=== PATIENT | female | born 1930 | race Caucasian/White ===

== ENCOUNTER → 2016-12-16 | Outpatient (CLI) | payer MEDICARE | END | disposition home or self-care (01) | LOC: PCVCCLINIC 10:36 | PROVIDERS: ATTEND Internal Medicine Cardiovascular Disease | DX: I48.91 Unspecified atrial fibrillation (principal); I10 Essential (primary) hypertension; I25.10 Atherosclerotic heart disease of native coronary artery without angina pectoris; I34.0 Nonrheumatic mitral (valve) insufficiency; I07.1 Rheumatic tricuspid insufficiency; I87.2 Venous insufficiency (chronic) (peripheral); E78.5 Hyperlipidemia, unspecified; R01.1 Cardiac murmur, unspecified | CPT/HCPCS: 80061; 93005; G0463 ==

== ENCOUNTER → 2017-08-19 | Outpatient (CLI) | payer MEDICARE, BC ==
--- NOTE | 2017-08-19 11:30 | PCVCIMAG ---
APPROVED REPORT Study performed: 08/19/2017 09:12:45 EXAM: Comprehensive 2D, Doppler, and color-flow Echocardiogram BSA: 1.71 2D Dimensions LVEF(%): 64.12 (>50%) IVSd: 8.69 (7-11mm)LVOT Diam: 23.02 (18-24mm) LVDd: 47.69 mm PWd: 7.02 (7-11mm)Ascending Ao: 29.91 (22-36mm) LVDs: 31.03 (25-40mm) Left Atrium: 36.33 (27-40mm) Aortic Root: 19.60 mm LV Single Plane 4CH: 56.99 % LV Single Plane 2CH: 63.23 %Gallardo's LVEF: 60.11 % Biplane EF: 61.1 % Volumes Left Atrial Volume (Systole) Single Plane 4CH: 79.75 mLSingle Plane 2CH: 59.09 mL Biplane LA Volume: 69.00 mLLA ESV Index: 41.00 mL/m2 Aortic Valve AoV Peak Shen.: 1.30 m/s AO Peak Gr.: 6.74 mmHgLVOT Max P.83 mmHg LVOT Max V: 0.84 m/s KHALIDA Vmax: 2.69 cm2 Mitral Valve E/A Ratio: 1.6 MV Decel. Time: 193.21 ms MV E Max Shen.: 1.05 m/s MV A Shen.: 0.65 m/s IVRT: 107.27 ms TDI E/Lateral E': 11.67E/Medial E': 15.00 Medial E' Shen.: 0.07 m/s Lateral E' Shen.: 0.09 m/s Pulmonary Vein P Vein S: 0.60 m/sP Vein A: 0.28 m/s P Vein D: 0.59 m/sP Vein A Dur.: 107.3 msec P Vein S/D Ratio: 1.02 Tricuspid Valve TR Peak Shen.: 2.92 m/s TR Peak Gr.: 34.03 mmHg TV Vmax: 0.96 m/sPA Pressure: 41.00 mmHg Left Ventricle The left ventricle is normal size. There is normal LV segmental wall motion. There is normal left ventricular wall thickness. Left ventricular systolic function is normal. The left ventricular ejection fraction is within the normal range. LVEF is 60-65%. Findings suggest the left atrial pressure is elevated. Right Ventricle The right ventricle is normal size. The right ventricular systolic function is normal. Atria Left atrium is mildly dilated. The right atrium size is normal. Aortic Valve The aortic valve is normal in structure. No aortic regurgitation is present. There is no aortic valvular stenosis. Mitral Valve The mitral valve is normal in structure. There is no mitral valve regurgitation noted. No evidence of mitral valve stenosis. Tricuspid Valve The tricuspid valve is normal in structure. Mild to moderate tricuspid regurgitation with a PA pressure of 41 mmHg. Pulmonic Valve The pulmonary valve is normal in structure. There is no pulmonic valvular regurgitation. Great Vessels The aortic root is normal in size. The ascending aorta is normal in size. IVC is normal in size and collapses with >50% inspiration Pericardium There is no pericardial effusion. There is no pleural effusion. <Conclusion> The left ventricle is normal size. There is normal left ventricular wall thickness. LVEF is 60-65%. Findings suggest the left atrial pressure is elevated. The right ventricle is normal size. Left atrium is mildly dilated. There is no aortic valvular stenosis. There is no mitral valve regurgitation noted. Mild to moderate tricuspid regurgitation with a PA pressure of 41 mmHg. There is no pericardial effusion.
== END | disposition home or self-care (01) ==
LOC: PCVCIMAG 09:25
PROVIDERS: ATTEND Internal Medicine Cardiovascular Disease
DX: I10 Essential (primary) hypertension (principal); I07.1 Rheumatic tricuspid insufficiency; I87.2 Venous insufficiency (chronic) (peripheral); I48.91 Unspecified atrial fibrillation; E78.00 Pure hypercholesterolemia, unspecified; E78.4 Other hyperlipidemia; R00.0 Tachycardia, unspecified; R01.1 Cardiac murmur, unspecified; Z79.899 Other long term (current) drug therapy
CPT/HCPCS: 80061; 93005; 93306; G0463

== ENCOUNTER → 2018-05-12 | Outpatient (CLI) | payer MEDICARE, BC | END | disposition home or self-care (01) | LOC: PCVCCLINIC 12:46 | DX: I48.0 Paroxysmal atrial fibrillation (principal); I10 Essential (primary) hypertension; E78.00 Pure hypercholesterolemia, unspecified; I87.2 Venous insufficiency (chronic) (peripheral); I35.8 Other nonrheumatic aortic valve disorders; Z87.891 Personal history of nicotine dependence; Z79.899 Other long term (current) drug therapy | CPT/HCPCS: 80061; 93005; G0463 ==

== ENCOUNTER → 2018-05-18 | Outpatient (CLI) | payer MEDICARE, BC | END | disposition home or self-care (01) | LOC: PCVCCLINIC 14:22 | DX: I48.0 Paroxysmal atrial fibrillation (principal); R53.83 Other fatigue; I10 Essential (primary) hypertension; I34.0 Nonrheumatic mitral (valve) insufficiency; I36.1 Nonrheumatic tricuspid (valve) insufficiency; I35.8 Other nonrheumatic aortic valve disorders; J44.9 Chronic obstructive pulmonary disease, unspecified; I48.91 Unspecified atrial fibrillation; Z79.899 Other long term (current) drug therapy | CPT/HCPCS: 93005; G0463 ==

== ENCOUNTER → 2018-06-25 | Outpatient (CLI) | payer MEDICARE, BC | END | disposition home or self-care (01) | LOC: PCVCCLINIC 16:32 | PROVIDERS: ATTEND Internal Medicine Cardiovascular Disease | DX: I48.91 Unspecified atrial fibrillation (principal); I25.10 Atherosclerotic heart disease of native coronary artery without angina pectoris; I10 Essential (primary) hypertension; R94.31 Abnormal electrocardiogram [ECG] [EKG]; I34.0 Nonrheumatic mitral (valve) insufficiency; I36.1 Nonrheumatic tricuspid (valve) insufficiency; I49.5 Sick sinus syndrome; I42.8 Other cardiomyopathies; Z95.0 Presence of cardiac pacemaker; Z88.8 Allergy status to other drugs, medicaments and biological substances; Z87.891 Personal history of nicotine dependence; Z79.899 Other long term (current) drug therapy | CPT/HCPCS: 93005; G0463 ==

== ENCOUNTER → 2018-10-07 | Outpatient (CLI) | payer MEDICARE, BC ==
--- NOTE | 2018-10-07 15:30 | PCVCIMAG ---
APPROVED REPORT Study performed: 10/07/2018 13:38:07 EXAM: Limited 2D, Doppler, and color-flow Echocardiogram Patient Location: Echo lab Room #: [id number]: routine BSA: 1.74 HR: 70 bpm Rhythm: Pacemaker Other Information Study Quality: Adequate Indications Atrial Fibrillation Pacemaker Palpitations Cardiomyopathy PM/ICD 2D Dimensions IVSd: 6.64 (7-11mm)LVOT Diam: 21.74 (18-24mm) LVDd: 50.48 mm PWd: 7.27 (7-11mm)Ascending Ao: 31.84 (22-36mm) LVDs: 36.74 (25-40mm) Left Atrium: 43.02 (27-40mm) Aortic Root: 24.90 mm LV Single Plane 4CH: 32.69 % LV Single Plane 2CH: 42.99 % Biplane EF: 38.1 % Volumes Left Atrial Volume (Systole) Single Plane 4CH: 75.88 mLSingle Plane 2CH: 49.39 mL Biplane LA Volume: 62.00 mLLA ESV Index: 35.00 mL/m2 Mitral Valve E/A Ratio: 2.2 MV Decel. Time: 140.16 ms MV E Max Shen.: 1.19 m/s MV A Shen.: 0.53 m/s Pulmonary Valve PV Peak Shen.: 0.88 m/sPV Peak Gr.: 3.12 mmHg Tricuspid Valve TR Peak Shen.: 3.27 m/s TR Peak Gr.: 42.82 mmHg TV Vmax: 0.77 m/sPA Pressure: 50.00 mmHg Left Ventricle The left ventricle is normal size. There is normal LV segmental wall motion. There is normal left ventricular wall thickness. Left ventricular systolic function is moderately decreased.worse distal ant septal wall LVEF is 35-40%. The left ventricular diastolic function is normal. Right Ventricle The right ventricle is normal size. The right ventricular systolic function is normal. Atria Left atrium is mildly dilated. Right atrium is moderately dilated. Aortic Valve Aortic valve is trileaflet. The Aortic valve is mildly sclerotic with normal leaflet excursion. No aortic regurgitation is present. There is no aortic valvular stenosis. Mitral Valve The mitral valve is normal in structure.Mild thickening seen in the posterior leaflet middle segment Mild to moderate mitral regurgitation. No evidence of mitral valve stenosis. Tricuspid Valve The tricuspid valve is normal in structure. Moderate to severe tricuspid regurgitation with a PA pressure of 50 mmHg. Pulmonic Valve The pulmonary valve is normal in structure. Trace pulmonic regurgitation. Great Vessels The aortic root is normal in size. The ascending aorta is normal in size. Aortic arch is not well visualized. IVC is normal in size and collapses >50% with inspiration. Pericardium There is no pericardial effusion. There is no pleural effusion. <Conclusion> The left ventricle is normal size. Left ventricular systolic function is moderately decreased.worse distal ant septal wall LVEF is 35-40%. The right ventricle is normal size. Left atrium is mildly dilated. Right atrium is moderately dilated. Aortic valve is trileaflet. The Aortic valve is mildly sclerotic with normal leaflet excursion. Mild to moderate mitral regurgitation. Moderate to severe tricuspid regurgitation with a PA pressure of 50 mmHg. The aortic root is normal in size. There is no pericardial effusion.
== END | disposition home or self-care (01) ==
LOC: PCVCIMAG 13:53
PROVIDERS: ATTEND Internal Medicine Cardiovascular Disease
DX: I08.3 Combined rheumatic disorders of mitral, aortic and tricuspid valves (principal); I48.91 Unspecified atrial fibrillation; R01.1 Cardiac murmur, unspecified; I25.10 Atherosclerotic heart disease of native coronary artery without angina pectoris; I42.9 Cardiomyopathy, unspecified; E78.00 Pure hypercholesterolemia, unspecified; I10 Essential (primary) hypertension; I87.2 Venous insufficiency (chronic) (peripheral); Z95.0 Presence of cardiac pacemaker; J44.9 Chronic obstructive pulmonary disease, unspecified; E78.5 Hyperlipidemia, unspecified; Z87.891 Personal history of nicotine dependence; Z88.0 Allergy status to penicillin; Z88.8 Allergy status to other drugs, medicaments and biological substances
CPT/HCPCS: 36415; 80061; 93308; G0463

== ENCOUNTER → 2019-04-12 | Outpatient (CLI) | payer MEDICARE, BC | END | disposition home or self-care (01) | LOC: PCVCCLINIC 14:00 | PROVIDERS: ATTEND Internal Medicine Cardiovascular Disease | DX: I48.91 Unspecified atrial fibrillation (principal); I25.10 Atherosclerotic heart disease of native coronary artery without angina pectoris; E78.00 Pure hypercholesterolemia, unspecified; I08.1 Rheumatic disorders of both mitral and tricuspid valves; R01.1 Cardiac murmur, unspecified; E78.5 Hyperlipidemia, unspecified | CPT/HCPCS: 36415; 80061; 93279; G0463 ==